=== PATIENT | female | born 1980 | race Caucasian/White ===

== ENCOUNTER → 2021-03-17 | Outpatient (CLI) | payer BC ==
[~2021-03-17] MED LIST: COLACE 100MG C100 MG PO; FLONASE 0.05% N16 GM; HUMULIN N100 UNIT/1 SQ; HUMULIN R100 UNIT/1 SC; HUMULIN R100 UNIT/1 SQ; IBUPROFEN600 MG PO; LORTAB 5-325 M1 EACH PO; PRENATAL VITAM1 EAC8 PO; PROZAC10 MG PO; ZOFRAN4 MG PO; ZYRTEC10 M3 PO
== END ==
LOC: LAB 16:20
DX: R10.13 Epigastric pain (principal)
CPT/HCPCS: 82150; 83690

== ENCOUNTER 2021-03-22 12:32 | Emergency (ER) | payer BC ==
[~2021-03-22 12:32] MED LIST changes: -ZOFRAN4 MG PO
[2021-03-22 13:21] LABS: HEMOGLOBIN 15.8 gm/dl (12.3-15.3); RED BLOOD COUNT 4.87 M/UL (4.00-5.10)
[2021-03-22 13:45] LABS: BUN/CREATININE RATIO 15 (0-10)
[2021-03-22] MEDS ORDERED: ZOFRAN4 MG PO (17:07)
== END 2021-03-22 18:38 | disposition home or self-care (01) ==
LOC: ER1 12:32
PROVIDERS: Emergency Medicine
DX: K91.0 Vomiting following gastrointestinal surgery (principal); E11.9 Type 2 diabetes mellitus without complications; F17.290 Nicotine dependence, other tobacco product, uncomplicated; Z90.49 Acquired absence of other specified parts of digestive tract
CPT/HCPCS: 71045; 80053; 81001; 83690; 84703; 85025; 96372; 96374; 96375; 96376; 99284; J1630; J2405; J2550; Q9967